=== PATIENT | female | born 1955 | race Caucasian/White ===

== ENCOUNTER 2017-08-30 08:15 | Day surgery (SDC) | payer BC ==
[~2017-08-30 08:15] MED LIST: ACETAMINOPHEN 1,000 MG/100 ML BTL IV ONE; FAMOTIDINE 20MG TABLET PO ONE; MECLIZINE 25 MG TABLET PO ONE; METOCLOPRAMIDE 10 MG TABLET PO ONE
[2017-08-30] MEDS ORDERED: FENTANYL PF 100MCG/2ML VIAL IV ONE (08:16)
[2017-08-30] MEDS ORDERED: DEXAMETHASONE PRESERVATIVE FREE 10MG/ML VIAL IV ONE (08:16)
[2017-08-30] MEDS ORDERED: MIDAZOLAM HCL 2MG/2ML VIAL IV ONE (08:16)
[2017-08-30] MEDS ORDERED: DEXAMETHASONE 4 MG/ML 1ML VIAL IVP ONE (08:16)
[2017-08-30] MEDS ORDERED: BUPIVACAINE 0.75% W/EPI MPF 30ML VIAL IVP ONE (08:16)
[2017-08-30] MEDS ORDERED: LIDOCAINE 1% W/EPI 1:200,000 MPF 30ML SQ ONE (08:16)
[2017-08-30] MEDS ORDERED: PROPOFOL 10 MG/ML VIAL IV ONE (08:16)
[2017-08-30] MEDS ORDERED: ONDANSETRON HCL IV 4 MG/2 ML VIAL IVP ONE (08:16)
[2017-08-30] MEDS ORDERED: LIDOCAINE 2% MDV (20MG/ML) 20ML VIAL IV ONE (08:16)
--- NOTE | 2017-08-30 15:49 | Operative Note - [place] ---
DATE OF SURGERY: 08/30/17 PREOPERATIVE DIAGNOSIS: CERVICAL SPONDYLOSIS WITHOUT MYELOPATHY, ICD-10 CODE = M47.812. OPERATION: RADIOFREQUENCY RHIZOTOMY BILATERAL CERVICAL FACETS 5-6 AND 6- 7. SURGEON: VERONICA OLIVA D.O. ANESTHESIA: LOCAL SEDATION. ANESTHESIA PROVIDER: JV ODELL CRNA. INDICATION: This patient presents with neck pain. Examination shows tenderness of the cervical spine. Range of motion does cause pain to the neck with extension. Diagnostics show diffuse multiple levels of spondylosis. A facet series 75-80% pain control at 4-5, 5-6, and 6-7. Insurance authorizations only approve 5-6 and 6-7 bilateral. PROCEDURE: Intravenous line, vital sign monitoring, IV sedation, prepped, draped, sterile technique. Facet levels at 5-6 and 6-7 identified and marked bilaterally infiltrated. A 22-gauge rhizotomy cannula positioned. Stimulation trials conducted. Rhizotomy burn performed. Local with anti-inflammatory into the sites. Topical antibiotics. Sterile dressing applied. We will monitor and evaluate. cc: Dr. Curran JOB NUMBER: [id number] [facility]
== END 2017-08-30 10:30 | disposition home or self-care (01) ==
LOC: SUR 08:15
PROVIDERS: ATTEND Pain Medicine Interventional Pain Medicine
DX: M47.812 Spondylosis without myelopathy or radiculopathy, cervical region (principal)
CPT/HCPCS: 64633; 64634; 01936; J2405; J1100; J3010; J3490

== ENCOUNTER 2018-03-14 06:52 | Day surgery (SDC) | payer BC ==
[2018-03-14] MEDS ORDERED: ACETAMINOPHEN 500 MG TABLET PO ONE (06:53)
[2018-03-14] MEDS ORDERED: BUPIVACAINE 0.5% W/EPI MPF 30 ML VIAL IVP ONE (06:53)
[2018-03-14] MEDS ORDERED: LIDOCAINE 1% W/EPI 1:200,000 MPF 30ML SQ ONE (06:53)
[2018-03-14] MEDS ORDERED: MIDAZOLAM HCL 2MG/2ML VIAL IV ONE (06:53)
[2018-03-14] MEDS ORDERED: DEXAMETHASONE 4 MG/ML 1ML VIAL IVP ONE (06:53)
[2018-03-14] MEDS ORDERED: FENTANYL PF 100MCG/2ML VIAL IV ONE (06:53)
[2018-03-14] MEDS ORDERED: PROPOFOL 10 MG/ML VIAL IV ONE (06:53)
[2018-03-14] MEDS ORDERED: METOCLOPRAMIDE HCL 10 MG/2 ML VIAL IVP ONE (06:53)
[2018-03-14] MEDS ORDERED: HYDROCODONE/APAP 7.5/325MG TABLET PO ONE (06:53)
[2018-03-14] MEDS ORDERED: DEXAMETHASONE PRESERVATIVE FREE 10MG/ML VIAL IV ONE (06:53)
[2018-03-14] MEDS ORDERED: ONDANSETRON HCL IV 4 MG/2 ML VIAL IVP ONE (06:53)
--- NOTE | 2018-03-15 07:37 | Operative Note ---
PAIN SERVICE OPERATIVE REPORT DATE OF PROCEDURE: 03/14/2018. PREOPERATIVE DIAGNOSIS: CERVICAL SPONDYLOSIS WITHOUT MYELOPATHY, ICD10 CODE M47.812. PROCEDURE: Radiofrequency rhizotomy bilateral cervical facets 4-5 and 5-6. SURGEON: Chase Carter D.O. INDICATIONS: This patient presents with pain which is primarily in the neck. Examination shows that cervical spine range of motion does cause pain in the neck with extension. Diagnostic studies show multi-level spondylosis. DESCRIPTION OF PROCEDURE: Intravenous line, vital sign monitoring, and intravenous sedation. Prepped and draped with sterile technique. Under imaging cervical facet levels at 4-5 and 5-6 were identified and marked bilaterally. The skin was infiltrated. Two separate 20-gauge rhizotomy cannulas were positioned left and then two right. Stimulation trials were conducted. Rhizotomy burn was performed. Local with anti-inflammatory into the sites. Topical antibiotic and sterile dressings were applied. We will monitor and evaluate. Appropriate motor testing was done to ensure there were no fasciculations in the extremities. Job Number: [id number] cc: Able Curran D.O. MTDD
== END 2018-03-14 09:45 | disposition home or self-care (01) ==
LOC: SUR 06:52
PROVIDERS: ATTEND Pain Medicine Interventional Pain Medicine
DX: M47.812 Spondylosis without myelopathy or radiculopathy, cervical region (principal)
CPT/HCPCS: J2405; J2765